=== PATIENT | female | born 1980 | race Caucasian/White ===

== ENCOUNTER 2017-04-30 09:35 | Emergency (ER) | payer OTHER, BC ==
[~2017-04-30 09:35] MED LIST: ALEVE220 MG PO; MULTIPLE VIT PO
[2017-04-30 10:05] LABS: ASCORBIC ACID (UR NOT ORDER) NEG (NEG); BILIRUBIN, URINE NEGATIVE (NEG); ER URINALYSIS TAT 0 Hrs 07 Mins; KETONE, URINE NEGATIVE (NEG); LEUKOCYTE ESTERASE(NOT OR NEG (NEG); NITRITE (URINE) NEG (NEG); WBC (NOT ORDERED) (RFLEX) 1 (0-5)
== END 2017-04-30 11:42 | disposition home or self-care (01) ==
LOC: ER 09:35
PROVIDERS: Nurse Practitioner Family
DX: S60.222A Contusion of left hand, initial encounter (principal); S50.312A Abrasion of left elbow, initial encounter; S40.812A Abrasion of left upper arm, initial encounter; Z79.899 Other long term (current) drug therapy; V43.92XA Unspecified car occupant injured in collision with other type car in traffic accident, initial encounter
CPT/HCPCS: 73080-LT; 73130-LT; 81001; 90471; 90714; 96372; 99284; J1885